=== PATIENT | male | born 1965 | race African-American/Black ===

== ENCOUNTER 2016-12-25 08:43 | Inpatient (IN) | payer OTHER ==
[2016-12-25 10:59] VITALS: BMI 24.9
--- NOTE | 2016-12-25 11:45 | HP ---
CIWA Score - CIWA Score Nausea/Vomitin Muscle Tremors: 4-Moderate,w/Arms Extend Anxiety: 2 Agitation: 3 Paroxysmal Sweats: 1-Minimal Palms Moist Orientation: 0-Oriented Tacttile Disturbances: 0-None Auditory Disturbances: 0-None Visual Disturbances: 0-None Headache: 0-None Present CIWA-Ar Total Score: 13 Admission ROS BHS - HPI Chief Complaint: Withdrawal sx. Allergies/Adverse Reactions: Allergies Allergy/AdvReac Type Severity Reaction Status Date / Time Penicillins Allergy Difficulty Verified 12/25/16 11:00 Breathing History of Present Illness: 51 y/o man with a long hx. of alcoholism is admitted for detox.Pt. has been in previous detox denies significant sobriety. Exam Limitations: No Limitations - Ebola screening Have you traveled outside of the country in the last 21 days: No Have you had contact with anyone from an Ebola affected area: No Have you been sick,other than usual withdrawal symptoms: No - Review of Systems Constitutional: No Symptoms Reported EENT: reports: No Symptoms Reported Respiratory: reports: No Symptoms reported Cardiac: reports: No Symptoms Reported GI: reports: Nausea, Abdominal cramping : reports: No Symptoms Reported Musculoskeletal: reports: No Symptoms Reported Integumentary: reports: No Symptoms Reported Neuro: reports: Tremors Endocrine: reports: No Symptoms Reported Hematology: reports: No Symptoms Reported Psychiatric: reports: No Sypmtoms Reported Other Systems: Reviewed and Negative Patient History - Patient Medical History Hx Anemia: No Hx Asthma: No Hx Chronic Obstructive Pulmonary Disease (COPD): No Hx Cancer: No Hx Cardiac Disorders: No Hx Congestive Heart Failure: No Hx Hypertension: No Hx Hypercholesterolemia: No Hx Pacemaker: No HX Cerebrovascular Accident: No Hx Seizures: No Hx Dementia: No Hx Diabetes: No Hx Gastrointestinal Disorders: No Hx Liver Disease: No Hx Genitourinary Disorders: No Hx Sexually Transmitted Disorders: No Hx Renal Disease (ESRD): No Hx Thyroid Disease: No Hx Human Immunodeficiency Virus (HIV): No Hx Hepatitis C: No Hx Depression: No Hx Suicide Attempt: No Hx Bipolar Disorder: No Hx Schizophrenia: No - Patient Surgical History Past Surgical History: No Hx Neurologic Surgery: No Hx Cataract Extraction: No Hx Cardiac Surgery: No Hx Lung Surgery: No Hx Breast Surgery: No Hx Breast Biopsy: No Hx Abdominal Surgery: No Hx Appendectomy: No Hx Cholecystectomy: No Hx Genitourinary Surgery: No Hx Section: No Hx Orthopedic Surgery: No Anesthesia Reaction: No - PPD History Previous Implant?: Yes Documented Results: Negative w/o proof Implanted On Prior [facility] Admission?: No PPD to be Administered?: Yes - Smoking Cessation Smoking history: Never smoked Have you smoked in the past 12 months: No Hx Chewing Tobacco Use: No Initiated information on smoking cessation: No - Substance & Tx. History Hx Alcohol Use: Yes Hx Substance Use: Yes Substance Use Type: Alcohol, Marijuana Hx Substance Use Treatment: Yes (Detox) - Substances Abused Alcohol-vodka/beer Route: Oral Frequency: Daily Amount used: 3 pts./1-6 pk. Age of first use: 14 Date of Last Use: 12/25/16 Marijuana Route: Smoking Frequency: 3-6 times per week Amount used: $5 Age of first use: 14 Date of Last Use: 12/24/16 Family Disease History - Family Disease History Family Disease History: Diabetes: Sister (Alcohol), CA: Mother, Other: Sister Admission Physical Exam [facility] - Vital Signs Vital Signs: Vital Signs - 24 hr 12/25/16 10:47 Temperature 97.4 F L Pulse Rate 81 Respiratory 18 Rate Blood Pressure 140/99 - Physical General Appearance: Yes: Alcohol on Breath, Tremorous, Irritable, Sweating, Anxious HEENTM: Yes: Within Normal Limits Respiratory: Yes: Chest Non-Tender, Lungs Clear, Normal Breath Sounds Neck: Yes: Supple Breast: Yes: Breast Exam Deferred Cardiology: Yes: Regular Rhythm, Regular Rate Abdominal: Yes: Normal Bowel Sounds, Non Tender, Soft Genitourinary: Yes: Within Normal Limits Back: Yes: Within Normal Limits Musculoskeletal: Yes: Within Normal Limits Extremities: Yes: Tremors Neurological: Yes: Fully Oriented, Alert Integumentary: Yes: Within Normal Limits Lymphatic: Yes: Within Normal Limits - Diagnostic (1) Alcohol dependence with uncomplicated withdrawal Current Visit: Yes Status: Acute (2) Cannabis dependence Current Visit: Yes Status: Acute Cleared for Admission [facility] - Detox or Rehab [facility] Level of Care: Medically Managed Detox Regimen/Protocol: Librium [facility] Breath Alcohol Content Breath Alcohol Content: 0.045 Urine Drug Screen - Results Drug Screen Negative: No Urine Drug Screen Results: TCA-Tricyclic Antidepress
[2016-12-25] MEDS ORDERED: MAGNESIUM HYDROX 2400MG/30ML ORAL SUSPENSION 30 ML CUP PO PRN (11:50)
[2016-12-25] MEDS ORDERED: LOPERAMIDE HCL 2 MG CAPSULE PO PRN (11:50)
[2016-12-25] MEDS ORDERED: P-EPHED 60MG/TRIPROLIDI 2.5MG TABLET PO PRN (11:50)
[2016-12-25] MEDS ORDERED: hydrOXYzine PAMOATE 50 MG CAPSULE (FP) PO PRN (11:50)
[2016-12-25] MEDS ORDERED: chlordiazePOXIDE HCL 25 MG CAPSULE PO PRN (11:50)
[2016-12-25] MEDS ORDERED: ACETAMINOPHEN 325 MG TABLET (FP) PO PRN (11:50)
[2016-12-25] MEDS ORDERED: IBUPROFEN 400 MG TABLET (FP) PO PRN (11:50)
[2016-12-25] MEDS ORDERED: MENTHOL/PHENOL 1 EACH UD MM PRN (11:50)
[2016-12-25] MEDS ORDERED: guaiFENesin/D-METHORPHAN HB 10 ML UNIT-DOSE CUPS PO PRN (11:50)
[2016-12-25] MEDS ORDERED: MAG HYDROX/AL HYDROX/SIMETH 30 ML UNIT-DOSE CUP PO PRN (11:50)
[2016-12-25] MEDS ORDERED: MAGNESIUM CITRATE 300 ML BOTTLE PO PRN (11:50)
[2016-12-25] MEDS ORDERED: chlordiazePOXIDE HCL 25 MG CAPSULE PO ONE (12:22)
[2016-12-25] MEDS: chlordiazePOXIDE HCL 25 MG CAPSULE PO SCH ×2 (17:40→22:39)
[2016-12-25 22:34] LABS: URINE APPEARANCE CLEAR; URINE BILIRUBIN NEGATIVE (NEGATIVE); URINE BLOOD NEGATIVE (NEGATIVE); URINE COLOR LTYELLOW; URINE GLUCOSE (UA) NEGATIVE (NEGATIVE); URINE KETONE NEGATIVE (NEGATIVE); URINE LEUK ESTERASE NEGATIVE (NEGATIVE); URINE NITRITE NEGATIVE (NEGATIVE); URINE PROTEIN NEGATIVE (NEGATIVE); URINE UROBILINOGEN NEGATIVE E.U./dl (0.2-1.0)
[2016-12-25] MEDS: diphenhydrAMINE HCL 50 MG CAPSULE PO PRN (22:39)
[2016-12-25] MEDS: THIAMINE HCL 100 MG TABLET (FP) PO SCH (22:39)
[2016-12-26] MEDS: chlordiazePOXIDE HCL 25 MG CAPSULE PO SCH ×4 (05:23→22:39)
--- NOTE | 2016-12-26 10:11 | EKG ---
Test Reason : Blood Pressure : / mmHG Vent. Rate : 076 BPM Atrial Rate : 076 BPM P-R Int : 152 ms QRS Dur : 074 ms QT Int : 402 ms P-R-T Axes : 046 059 038 degrees QTc Int : 452 ms NORMAL SINUS RHYTHM NO PREVIOUS ECGS AVAILABLE Confirmed by JIMBO LUGO MD ([id number]) on 12/26/2016 10:11:13 AM Referred By: Confirmed By:JMIBO LUGO MD
[2016-12-26 10:18] LABS: MCH 32.8 pg (25.7-33.7); MCHC 33.2 g/dl (32.0-35.9); MEAN CELL VOLUME 98.9 fl (80-96); MEAN PLT VOLUME 8.8 fl (7.5-11.1); PLATELET COUNT 236 K/MM3 (134-434); RDW 14.9 % (11.9-15.9); WHITE BLOOD COUNT 5.4 K/mm3 (4.0-10.0)
[2016-12-26] MEDS: PRENATAL VITAMINS W/ FOLIC ACID TABLET (FP) PO SCH (10:47)
[2016-12-26 11:27] LABS: ALBUMIN 4.1 g/dl (3.4-5.0); ALK PHOS 46 U/L (45-117); ANION GAP 9 (8-16); BILIRUBIN,TOTAL 0.5 mg/dL (0.2-1.0); CALCIUM 8.9 mg/dL (8.5-10.1); CO2 27 mmol/L (21-32); COCKROFT - GAULT 115.78; CREATININE 0.8 mg/dL (0.7-1.3); GLUCOSE,RANDOM 124 mg/dL (74-106); SGOT/AST 30 U/L (15-37); SGPT/ALT 35 U/L (12-78)
--- NOTE | 2016-12-26 12:35 | PN ---
S CIWA - CIWA Score Nausea/Vomitin Muscle Tremors: 3 Anxiety: 2 Agitation: 2 Paroxysmal Sweats: 2 Orientation: 0-Oriented Tacttile Disturbances: 1-Very Mild Itch/Numbness Auditory Disturbances: 0-None Visual Disturbances: 0-None Headache: 2-Mild CIWA-Ar Total Score: 14 S Progress Note (SOAP) Subjective: shakes, interrupted sleep, restlessness Objective: 12/26/16 12:34 Vital Signs - 8 hr 12/26/16 12/26/16 06:41 09:38 Temperature 97.1 F L 96.7 F L Pulse Rate 79 105 H Respiratory 18 18 Rate Blood Pressure 145/95 140/100 Laboratory Last Values WBC 5.4 K/mm3 (4.0-10.0) 12/26/16 06:16 RBC 3.89 M/mm3 (4.00-5.60) L 12/26/16 06:16 Hgb 12.7 GM/dL (11.7-16.9) 12/26/16 06:16 Hct 38.5 % (35.4-49) 12/26/16 06:16 MCV 98.9 fl (80-96) H 12/26/16 06:16 MCHC 33.2 g/dl (32.0-35.9) 12/26/16 06:16 RDW 14.9 % (11.9-15.9) 12/26/16 06:16 Plt Count 236 K/MM3 (134-434) 12/26/16 06:16 MPV 8.8 fl (7.5-11.1) 12/26/16 06:16 Sodium 141 mmol/L (136-145) 12/26/16 06:16 Potassium 4.3 mmol/L (3.5-5.1) 12/26/16 06:16 Chloride 105 mmol/L (98-107) 12/26/16 06:16 Carbon Dioxide 27 mmol/L (21-32) 12/26/16 06:16 Anion Gap 9 (8-16) 12/26/16 06:16 BUN 14 mg/dL (7-18) 12/26/16 06:16 Creatinine 0.8 mg/dL (0.7-1.3) 12/26/16 06:16 Creat Clearance w eGFR > 60 (>60) 12/26/16 06:16 Random Glucose 124 mg/dL (74-106) H 12/26/16 06:16 Calcium 8.9 mg/dL (8.5-10.1) 12/26/16 06:16 Total Bilirubin 0.5 mg/dL (0.2-1.0) 12/26/16 06:16 AST 30 U/L (15-37) 12/26/16 06:16 ALT 35 U/L (12-78) 12/26/16 06:16 Alkaline Phosphatase 46 U/L (45-117) 12/26/16 06:16 Total Protein 8.0 g/dl (6.4-8.2) 12/26/16 06:16 Albumin 4.1 g/dl (3.4-5.0) 12/26/16 06:16 Urine Color Ltyellow 12/25/16 13:00 Urine Appearance Clear 12/25/16 13:00 Urine pH 5.0 (5.0-8.0) 12/25/16 13:00 Ur Specific [place] 1.024 (1.001-1.035) 12/25/16 13:00 Urine Protein Negative (NEGATIVE) 12/25/16 13:00 Urine Glucose (UA) Negative (NEGATIVE) 12/25/16 13:00 Urine Ketones Negative (NEGATIVE) 12/25/16 13:00 Urine Blood Negative (NEGATIVE) 12/25/16 13:00 Urine Nitrite Negative (NEGATIVE) 12/25/16 13:00 Urine Bilirubin Negative (NEGATIVE) 12/25/16 13:00 Urine Urobilinogen Negative E.U./dl (0.2-1.0) 12/25/16 13:00 Ur Leukocyte Esterase Negative (NEGATIVE) 12/25/16 13:00 labs noted Assessment: 12/26/16 12:35 withdrawal sx Plan: continue detox
[2016-12-26] MEDS: THIAMINE HCL 100 MG TABLET (FP) PO SCH (22:39)
[2016-12-26] MEDS: diphenhydrAMINE HCL 50 MG CAPSULE PO PRN (22:39)
[2016-12-27] MEDS: chlordiazePOXIDE HCL 25 MG CAPSULE PO SCH ×2 (05:38→10:31)
[2016-12-27] MEDS: PRENATAL VITAMINS W/ FOLIC ACID TABLET (FP) PO SCH (10:31)
[2016-12-27 11:02] LABS: URINE APPEARANCE CLEAR; URINE BILIRUBIN NEGATIVE (NEGATIVE); URINE BLOOD NEGATIVE (NEGATIVE); URINE COLOR STRAW; URINE GLUCOSE (UA) NEGATIVE (NEGATIVE); URINE KETONE NEGATIVE (NEGATIVE); URINE LEUK ESTERASE NEGATIVE (NEGATIVE); URINE NITRITE NEGATIVE (NEGATIVE); URINE PROTEIN NEGATIVE (NEGATIVE); URINE UROBILINOGEN NEGATIVE E.U./dl (0.2-1.0)
--- NOTE | 2016-12-27 14:19 | PN ---
S CIWA - CIWA Score Nausea/Vomitin Muscle Tremors: 4-Moderate,w/Arms Extend Anxiety: 4-Mod. Anxious/Guarded Agitation: 4-Moderately Restless Paroxysmal Sweats: No Perspiration Orientation: 0-Oriented Tacttile Disturbances: 1-Very Mild Itch/Numbness Auditory Disturbances: 0-None Visual Disturbances: 0-None Headache: 2-Mild CIWA-Ar Total Score: 18 BHS Progress Note (SOAP) Subjective: Sweating, anxious, interrupted sleep, tremor Objective: 12/27/16 14:18 Last Vital Signs Temp Pulse Resp BP Pulse Ox 96.5 F L 98 H 20 123/80 12/27/16 13:12 12/27/16 13:12 12/27/16 13:12 12/27/16 13:12 Laboratory Tests 12/25/16 12/26/16 12/26/16 13:00 06:16 06:16 WBC 5.4 RBC 3.89 L Hgb 12.7 Hct 38.5 MCV 98.9 H MCHC 33.2 RDW 14.9 Plt Count 236 MPV 8.8 Sodium 141 Potassium 4.3 Chloride 105 Carbon Dioxide 27 Anion Gap 9 BUN 14 Creatinine 0.8 Creat Clearance w eGFR > 60 Random Glucose 124 H Calcium 8.9 Total Bilirubin 0.5 AST 30 ALT 35 Alkaline Phosphatase 46 Total Protein 8.0 Albumin 4.1 Urine Color Ltyellow Urine Appearance Clear Urine pH 5.0 Ur Specific [place] 1.024 Urine Protein Negative Urine Glucose (UA) Negative Urine Ketones Negative Urine Blood Negative Urine Nitrite Negative Urine Bilirubin Negative Urine Urobilinogen Negative Ur Leukocyte Esterase Negative RPR Titer 12/26/16 12/27/16 06:16 08:55 WBC RBC Hgb Hct MCV MCHC RDW Plt Count MPV Sodium Potassium Chloride Carbon Dioxide Anion Gap BUN Creatinine Creat Clearance w eGFR Random Glucose Calcium Total Bilirubin AST ALT Alkaline Phosphatase Total Protein Albumin Urine Color Straw Urine Appearance Clear Urine pH 6.0 Ur Specific [place] 1.003 Urine Protein Negative Urine Glucose (UA) Negative Urine Ketones Negative Urine Blood Negative Urine Nitrite Negative Urine Bilirubin Negative Urine Urobilinogen Negative Ur Leukocyte Esterase Negative RPR Titer Nonreactive Labs noted Assessment: 12/27/16 14:19 Withdrawal symptoms Plan: Continue detox
[2016-12-27] MEDS: chlordiazePOXIDE 5 MG CAPSULE PO SCH ×2 (18:18→23:10)
[2016-12-27] MEDS: THIAMINE HCL 100 MG TABLET (FP) PO SCH (23:10)
[2016-12-28] MEDS: chlordiazePOXIDE 5 MG CAPSULE PO SCH ×2 (05:10→10:44)
[2016-12-28] MEDS: PRENATAL VITAMINS W/ FOLIC ACID TABLET (FP) PO SCH (10:44)
--- NOTE | 2016-12-28 16:03 | PN ---
BHS Progress Note (SOAP) Subjective: Sweating,interrupted sleep,restless Objective: 12/28/16 16:02 Vital Signs - 8 hr 12/28/16 12/28/16 09:31 14:11 Temperature 97.2 F L 96.4 F L Pulse Rate 87 93 H Respiratory 18 20 Rate Blood Pressure 131/98 120/87 Laboratory Tests 12/25/16 12/26/16 12/26/16 13:00 06:16 06:16 WBC 5.4 RBC 3.89 L Hgb 12.7 Hct 38.5 MCV 98.9 H MCHC 33.2 RDW 14.9 Plt Count 236 MPV 8.8 Sodium 141 Potassium 4.3 Chloride 105 Carbon Dioxide 27 Anion Gap 9 BUN 14 Creatinine 0.8 Creat Clearance w eGFR > 60 Random Glucose 124 H Calcium 8.9 Total Bilirubin 0.5 AST 30 ALT 35 Alkaline Phosphatase 46 Total Protein 8.0 Albumin 4.1 Urine Color Ltyellow Urine Appearance Clear Urine pH 5.0 Ur Specific [place] 1.024 Urine Protein Negative Urine Glucose (UA) Negative Urine Ketones Negative Urine Blood Negative Urine Nitrite Negative Urine Bilirubin Negative Urine Urobilinogen Negative Ur Leukocyte Esterase Negative RPR Titer 12/26/16 12/27/16 06:16 08:55 WBC RBC Hgb Hct MCV MCHC RDW Plt Count MPV Sodium Potassium Chloride Carbon Dioxide Anion Gap BUN Creatinine Creat Clearance w eGFR Random Glucose Calcium Total Bilirubin AST ALT Alkaline Phosphatase Total Protein Albumin Urine Color Straw Urine Appearance Clear Urine pH 6.0 Ur Specific [place] 1.003 Urine Protein Negative Urine Glucose (UA) Negative Urine Ketones Negative Urine Blood Negative Urine Nitrite Negative Urine Bilirubin Negative Urine Urobilinogen Negative Ur Leukocyte Esterase Negative RPR Titer Nonreactive labs noted Assessment: 12/28/16 16:02 Withdrawal sx. Plan: Continue detox
[2016-12-28] MEDS: chlordiazePOXIDE HCL 10 MG CAPSULE PO SCH ×2 (17:29→22:26)
[2016-12-28] MEDS: THIAMINE HCL 100 MG TABLET (FP) PO SCH (22:26)
[2016-12-29] MEDS: diphenhydrAMINE HCL 50 MG CAPSULE PO PRN (01:22)
[2016-12-29] MEDS: chlordiazePOXIDE HCL 10 MG CAPSULE PO SCH (05:59)
[2016-12-29 06:26] VITALS: BP 119/85; PULSE 86; TEMP 95.4
--- NOTE | 2016-12-29 10:18 | DS ---
[facility] Detox Discharge Summary Admission Date: 12/25/16 Discharge Date: 12/29/16 - History Present History: Alcohol Dependence, Cannabis Dependence Pertinent Past History: Shoulder separation - Physical Exam Results Vital Signs: Vital Signs Temperature 95.4 F L 12/29/16 06:26 Pulse Rate 86 12/29/16 06:26 Respiratory Rate 18 12/29/16 06:26 Blood Pressure 119/85 12/29/16 06:26 O2 Sat by Pulse Oximetry (%) Pertinent Admission Physical Exam Findings: Withdrawal sx. Laboratory Tests 12/25/16 12/26/16 12/26/16 13:00 06:16 06:16 WBC 5.4 RBC 3.89 L Hgb 12.7 Hct 38.5 MCV 98.9 H MCHC 33.2 RDW 14.9 Plt Count 236 MPV 8.8 Sodium 141 Potassium 4.3 Chloride 105 Carbon Dioxide 27 Anion Gap 9 BUN 14 Creatinine 0.8 Creat Clearance w eGFR > 60 Random Glucose 124 H Calcium 8.9 Total Bilirubin 0.5 AST 30 ALT 35 Alkaline Phosphatase 46 Total Protein 8.0 Albumin 4.1 Urine Color Ltyellow Urine Appearance Clear Urine pH 5.0 Ur Specific [place] 1.024 Urine Protein Negative Urine Glucose (UA) Negative Urine Ketones Negative Urine Blood Negative Urine Nitrite Negative Urine Bilirubin Negative Urine Urobilinogen Negative Ur Leukocyte Esterase Negative RPR Titer 12/26/16 12/27/16 06:16 08:55 WBC RBC Hgb Hct MCV MCHC RDW Plt Count MPV Sodium Potassium Chloride Carbon Dioxide Anion Gap BUN Creatinine Creat Clearance w eGFR Random Glucose Calcium Total Bilirubin AST ALT Alkaline Phosphatase Total Protein Albumin Urine Color Straw Urine Appearance Clear Urine pH 6.0 Ur Specific [place] 1.003 Urine Protein Negative Urine Glucose (UA) Negative Urine Ketones Negative Urine Blood Negative Urine Nitrite Negative Urine Bilirubin Negative Urine Urobilinogen Negative Ur Leukocyte Esterase Negative RPR Titer Nonreactive labs noted - Treatment Hospital Course: Detox Protocol Followed, Detoxed Safely, Responded well, Discharged Condition Good, Rehab Referral Accepted Patient has Accepted a Rehab Referral to: IOP - Medication Discharge Medications: Ambulatory Orders NK [No Known Home Medication] 12/25/16 - Diagnosis (1) Alcohol dependence with uncomplicated withdrawal Status: Acute (2) Cannabis dependence Status: Acute - AMA Did Patient Leave Against Medical Advice: No
== END 2016-12-29 09:00 | disposition home or self-care (01) | DRG 775 ==
LOC: YASAS 08:43 → Y3N 12:05
PROVIDERS: ADMIT Internal Medicine; ATTEND Internal Medicine
PROC: HZ2ZZZZ Detoxification Services for Substance Abuse Treatment (ICD-10-PCS; principal; 2016-12-29)
DX: F10.230 Alcohol dependence with withdrawal, uncomplicated (principal); F12.20 Cannabis dependence, uncomplicated
CPT/HCPCS: 36415; 80053; 81003; 85027; 86593; 93005; 93010

== ENCOUNTER 2018-12-05 12:40 | Inpatient (IN) | payer OTHER ==
--- NOTE | 2018-12-05 14:50 | HP ---
CIWA Score Nausea/Vomitin Muscle Tremors: 2 Anxiety: 2 Agitation: 2 Paroxysmal Sweats: 1-Minimal Palms Moist Orientation: 0-Oriented Tacttile Disturbances: 1-Very Mild Itch/Numbness Auditory Disturbances: 1-Very Mild Visual Disturbances: 0-None Headache: 2-Mild CIWA-Ar Total Score: 13 - Admission Criteria [facility] Guidelines: Admission for Medically Managed Detox: Requires at least one of the followin. CIWA greater than 12 2. Seizures within the past 24 hours 3. Delirium tremens within the past 24 hours 4. Hallucinations within the past 24 hours 5. Acute intervention needed for co occurring medical disorder 6. Acute intervention needed for co occurring psychiatric disorder 7. Severe withdrawal that cannot be handled at a lower level of care (continued vomiting, continued diarrhea, abnormal vital signs) requiring intravenous medication and/or fluids 8. Admission ROS BHS - HPI Chief Complaint: i need help to stop drinking alcohol and marijuana Allergies/Adverse Reactions: Allergies Allergy/AdvReac Type Severity Reaction Status Date / Time Penicillins Allergy Difficulty Verified 12/05/18 14:39 Breathing History of Present Illness: this 53 years old male with alcohol and marijuana dependence seeking detox, withdrawal symptom,last detox C 12/25/16 to 12/29/16 last rehab 2018 syncope alcohol related multiple admissions in detox but keep relapsing nicotine dependence 1 to 2 cigarette/day,do not want nicotine replacement no significant period of sobriety Exam Limitations: No Limitations - Ebola screening Have you traveled outside of the country in the last 21 days: No Have you had contact with anyone from an Ebola affected area: No - Review of Systems Constitutional: Loss of Appetite, Malaise, Night Sweats, Changes in sleep, Weakness, Unintentional Wgt. Loss EENT: reports: No Symptoms Reported, Nose Congestion Respiratory: reports: No Symptoms reported Cardiac: reports: No Symptoms Reported GI: reports: Diarrhea, Nausea, Abdominal cramping : reports: No Symptoms Reported Musculoskeletal: reports: Back Pain, Muscle Pain Integumentary: reports: Dryness Neuro: reports: Headache, Tremors Endocrine: reports: No Symptoms Reported Hematology: reports: No Symptoms Reported Psychiatric: reports: No Sypmtoms Reported, Judgement Intact, Mood/Affect Appropiate, Orientated x3 Other Systems: Reviewed and Negative Patient History - Patient Medical History Hx Anemia: No Hx Asthma: No Hx Chronic Obstructive Pulmonary Disease (COPD): No Hx Cancer: No Hx Cardiac Disorders: No Hx Congestive Heart Failure: No Hx Hypertension: No Hx Hypercholesterolemia: No Hx Pacemaker: No HX Cerebrovascular Accident: No Hx Seizures: No Hx Dementia: No Hx Diabetes: No Hx Gastrointestinal Disorders: No Hx Liver Disease: No Hx Genitourinary Disorders: No Hx Sexually Transmitted Disorders: No Hx Renal Disease (ESRD): No Hx Thyroid Disease: No Hx Human Immunodeficiency Virus (HIV): No (last 09/24 negative) Hx Hepatitis C: No Hx Depression: No Hx Suicide Attempt: No Hx Bipolar Disorder: No Hx Schizophrenia: No Other Medical History: no suiciidal,no homicidal - Patient Surgical History Past Surgical History: No Hx Neurologic Surgery: No Hx Cataract Extraction: No Hx Cardiac Surgery: No Hx Lung Surgery: No Hx Breast Surgery: No Hx Breast Biopsy: No Hx Abdominal Surgery: No Hx Appendectomy: No Hx Cholecystectomy: No Hx Genitourinary Surgery: No Hx Section: No Hx Orthopedic Surgery: No Anesthesia Reaction: No - PPD History Previous Implant?: Yes Documented Results: Negative w/o proof Implanted On Prior [facility] Admission?: Yes Date: 12/27/16 Results: 1 mm PPD to be Administered?: Yes - Smoking Cessation Smoking history: Never smoked Have you smoked in the past 12 months: No Aproximately how many cigarettes per day: 1 Hx Chewing Tobacco Use: No Initiated information on smoking cessation: Yes 'Breaking Loose' booklet given: 12/05/18 - Substance & Tx. History Hx Alcohol Use: Yes Hx Substance Use: Yes Substance Use Type: Alcohol Hx Substance Use Treatment: Yes ([facility] 12/25/16 to 12/29/16) - Substances abused Alcohol Substance route: Oral Frequency: Daily Amount used: 1 quart of vodka Age of first use: 14 Date of last use: 12/04/18 Marijuana/Hashish Substance route: Smoking Frequency: 1-2 times per week Amount used: 10$ Age of first use: 14 Date of last use: 12/03/18 Family Disease History - Family Disease History Family Disease History: Diabetes: Sister (Alcohol), CA: Mother (), Other : Father (,cva), Sister Admission Physical Exam BHS - Physical General Appearance: Yes: Moderate Distress, Tremorous, Irritable, Sweating, Anxious HEENTM: Yes: Normocephalic, [place], Pharynx Normal Respiratory: Yes: Within Normal Limits, Lungs Clear, Normal Breath Sounds Neck: Yes: Within Normal Limits, Supple, Trachea in good position Breast: Yes: Within Normal Limits Cardiology: Yes: Within Normal Limits, Regular Rhythm, Regular Rate, S1, S2 Abdominal: Yes: Within Normal Limits, Normal Bowel Sounds, Soft Genitourinary: Yes: Within Normal Limits Back: Yes: Muscle Spasm Musculoskeletal: Yes: Back pain, Muscle Pain Extremities: Yes: Within Normal Limits, Normal Range of Motion, Tremors Neurological: Yes: exhibition organiser II-XII NML intact, Fully Oriented, Alert, Motor Strength 5/5 Integumentary: Yes: Dry, Other (hyperpigmenatation of right hand ,r/o tinea) - Diagnostic (1) Alcohol dependence with uncomplicated withdrawal Current Visit: No Status: Acute (2) Cannabis dependence Current Visit: No Status: Acute (3) Tinea Current Visit: Yes Status: Acute (4) Syncope Current Visit: Yes Status: Acute (5) Lactose intolerance Current Visit: Yes Status: Acute Cleared for Admission [facility] - Detox or Rehab [facility] Level of Care: Medically Managed Detox Regimen/Protocol: Librium Inpatient Rehab Admission - Rehab Decision to Admit Inpatient rehab admission?: No
[2018-12-05] MEDS ORDERED: hydrOXYzine PAMOATE 25 MG CAPSULE (FP) PO PRN (15:25)
[2018-12-05] MEDS ORDERED: MENTHOL/PHENOL 1 EACH UD MM PRN (15:25)
[2018-12-05] MEDS ORDERED: ACETAMINOPHEN 325 MG TABLET (FP) PO PRN ×2 (15:25)
[2018-12-05] MEDS ORDERED: MAG HYDROX/AL HYDROX/SIMETH 30 ML UNIT-DOSE CUP PO PRN (15:25)
[2018-12-05] MEDS ORDERED: MAGNESIUM HYDROX 2400MG/30ML ORAL SUSPENSION 30 ML CUP PO PRN (15:25)
[2018-12-05] MEDS ORDERED: IBUPROFEN 400 MG TABLET (FP) PO PRN (15:25)
[2018-12-05] MEDS ORDERED: MAGNESIUM CITRATE 300 ML BOTTLE PO PRN (15:25)
[2018-12-05] MEDS ORDERED: METHOCARBAMOL 500 MG TABLET PO PRN (15:25)
[2018-12-05] MEDS ORDERED: chlordiazePOXIDE HCL 25 MG CAPSULE PO PRN (15:25)
[2018-12-05] MEDS ORDERED: BISMUTH SUBSALICYLATE 524 MG/30 ML UD PO PRN (15:25)
[2018-12-05] MEDS: chlordiazePOXIDE HCL 25 MG CAPSULE PO SCH ×2 (17:48→22:42)
[2018-12-05] MEDS: FLUOCINONIDE 0.05% CREAM (15 GM TUBE) TP SCH ×2 (17:48→22:43)
[2018-12-05] MEDS: THIAMINE HCL 100 MG TABLET (FP) PO SCH (22:43)
[2018-12-06] MEDS: FLUOCINONIDE 0.05% CREAM (15 GM TUBE) TP SCH ×3 (05:43→22:37)
[2018-12-06] MEDS: chlordiazePOXIDE HCL 25 MG CAPSULE PO SCH ×4 (05:43→22:37)
[2018-12-06 10:00] LABS: HEMATOCRIT 41.1 % (35.4-49); HEMOGLOBIN 13.8 GM/dL (11.7-16.9); MCH 34.3 pg (25.7-33.7); MCHC 33.6 g/dl (32.0-35.9); MEAN CELL VOLUME 102.1 fl (80-96); MEAN PLT VOLUME 9.1 fl (7.5-11.1); PLATELET COUNT 193 K/MM3 (134-434); RBC 4.03 M/mm3 (4.00-5.60); RDW 12.9 % (11.9-15.9); WHITE BLOOD COUNT 5.9 K/mm3 (4.0-10.0)
[2018-12-06 10:28] LABS: ALBUMIN 3.4 g/dl (3.4-5.0); ALK PHOS 52 U/L (45-117); ANION GAP 7 MMOL/L (8-16); BILIRUBIN,TOTAL 0.9 mg/dL (0.2-1); BLOOD UREA NITROGEN 11 mg/dL (7-18); CALCIUM 9.1 mg/dL (8.5-10.1); CHLORIDE 100 mmol/L (98-107); CO2 30 mmol/L (21-32); CREATININE 0.9 mg/dL (0.55-1.3); GLUCOSE,RANDOM 101 mg/dL (74-106); POTASSIUM 3.9 mmol/L (3.5-5.1); SGOT/AST 99 U/L (15-37); SGPT/ALT 52 U/L (13-61); SODIUM 137 mmol/L (136-145); TOT PROT 7.5 g/dl (6.4-8.2)
[2018-12-06] MEDS: PRENATAL VITAMINS W/ FOLIC ACID TABLET (FP) PO SCH (10:38)
[2018-12-06] MEDS: MELATONIN 5 MG TABLETS PO PRN (22:37)
[2018-12-06] MEDS: THIAMINE HCL 100 MG TABLET (FP) PO SCH (22:37)
[2018-12-07] MEDS: chlordiazePOXIDE HCL 25 MG CAPSULE PO SCH ×2 (06:05→10:53)
[2018-12-07] MEDS: FLUOCINONIDE 0.05% CREAM (15 GM TUBE) TP SCH ×3 (06:06→22:07)
[2018-12-07] MEDS: PRENATAL VITAMINS W/ FOLIC ACID TABLET (FP) PO SCH (10:53)
--- NOTE | 2018-12-07 11:30 | PN ---
S CIWA - CIWA Score Nausea/Vomitin-Mild Nausea/No Vomiting Muscle Tremors: 1-None Visible, but [place] Anxiety: 0-No Anxiety, at Ease Agitation: 0-Normal Activity Paroxysmal Sweats: No Perspiration Orientation: 0-Oriented Tacttile Disturbances: 0-None Auditory Disturbances: 0-None Visual Disturbances: 0-None Headache: 1-Very Mild CIWA-Ar Total Score: 3 BHS Progress Note (SOAP) Subjective: pt states he is "OK" today, has no complaints. O: Vital Signs - 24 hr 12/06/18 12/06/18 12/06/18 14:03 16:52 21:14 Temperature 97.7 F 98.8 F 98.2 F Pulse Rate 115 H 122 H 115 H Respiratory 18 18 18 Rate Blood Pressure 135/93 101/58 L 139/110 H 12/06/18 12/07/18 12/07/18 21:58 00:30 08:01 Temperature 98.2 F 97.9 F Pulse Rate 97 H 87 Respiratory 18 18 18 Rate Blood Pressure 127/84 105/73 12/07/18 09:10 Temperature 98.1 F Pulse Rate 91 H Respiratory 16 Rate Blood Pressure 132/84 mildly increased [place]-91 Laboratory Tests 12/06/18 12/06/18 12/06/18 07:00 07:00 07:00 WBC 5.9 RBC 4.03 Hgb 13.8 Hct 41.1 MCV 102.1 H MCH 34.3 H MCHC 33.6 RDW 12.9 D Plt Count 193 MPV 9.1 Sodium 137 Potassium 3.9 Chloride 100 Carbon Dioxide 30 Anion Gap 7 L BUN 11 Creatinine 0.9 Creat Clearance w eGFR 87.61 Random Glucose 101 Calcium 9.1 Total Bilirubin 0.9 AST 99 H ALT 52 Alkaline Phosphatase 52 Total Protein 7.5 Albumin 3.4 RPR Titer Nonreactive increased MCV, increased AST: likely due to alcohol use a/p: continue alcohol detox protocol
[2018-12-07] MEDS ORDERED: chlordiazePOXIDE HCL 10 MG CAPSULE PO PRN (17:00)
[2018-12-07] MEDS: chlordiazePOXIDE HCL 10 MG CAPSULE PO SCH ×2 (17:49→22:07)
[2018-12-07] MEDS: MELATONIN 5 MG TABLETS PO PRN (22:06)
[2018-12-07] MEDS: THIAMINE HCL 100 MG TABLET (FP) PO SCH (22:07)
[2018-12-08] MEDS: chlordiazePOXIDE HCL 10 MG CAPSULE PO SCH ×3 (06:48→18:51)
[2018-12-08] MEDS: FLUOCINONIDE 0.05% CREAM (15 GM TUBE) TP SCH ×3 (06:48→22:01)
--- NOTE | 2018-12-08 09:57 | PN ---
BHS CIWA - CIWA Score Nausea/Vomitin Muscle Tremors: 2 Anxiety: 2 Agitation: 2 Paroxysmal Sweats: 1-Minimal Palms Moist Orientation: 0-Oriented Tacttile Disturbances: 1-Very Mild Itch/Numbness Auditory Disturbances: 1-Very Mild Visual Disturbances: 0-None Headache: 2-Mild CIWA-Ar Total Score: 13 BHS Progress Note (SOAP) Subjective: alert,irritable,anxious,interrupted sleep,tremor Objective: 12/08/18 09:55 t98.2.p93,r18,bp 112/72 Assessment: 12/08/18 09:56 withdrawal symptom 12/08/18 09:56labs pending l Plan: continue detox
--- NOTE | 2018-12-08 09:59 | PN ---
S Progress Note (SOAP) Subjective: alert,irritable,anxious,interrupted sleep Objective: 12/08/18 09:58 Vital Signs Temperature 98.1 F 12/08/18 07:32 Pulse Rate 84 12/08/18 07:32 Respiratory Rate 18 12/08/18 07:32 Blood Pressure 118/77 12/08/18 07:32 O2 Sat by Pulse Oximetry (%) 12/08/18 09:58 Laboratory Last Values WBC 5.9 K/mm3 (4.0-10.0) 12/06/18 07:00 RBC 4.03 M/mm3 (4.00-5.60) 12/06/18 07:00 Hgb 13.8 GM/dL (11.7-16.9) 12/06/18 07:00 Hct 41.1 % (35.4-49) 12/06/18 07:00 MCV 102.1 fl (80-96) H 12/06/18 07:00 MCH 34.3 pg (25.7-33.7) H 12/06/18 07:00 MCHC 33.6 g/dl (32.0-35.9) 12/06/18 07:00 RDW 12.9 % (11.9-15.9) D 12/06/18 07:00 Plt Count 193 K/MM3 (134-434) 12/06/18 07:00 MPV 9.1 fl (7.5-11.1) 12/06/18 07:00 Sodium 137 mmol/L (136-145) 12/06/18 07:00 Potassium 3.9 mmol/L (3.5-5.1) 12/06/18 07:00 Chloride 100 mmol/L (98-107) 12/06/18 07:00 Carbon Dioxide 30 mmol/L (21-32) 12/06/18 07:00 Anion Gap 7 MMOL/L (8-16) L 12/06/18 07:00 BUN 11 mg/dL (7-18) 12/06/18 07:00 Creatinine 0.9 mg/dL (0.55-1.3) 12/06/18 07:00 Creat Clearance w eGFR 87.61 (>60) 12/06/18 07:00 Random Glucose 101 mg/dL (74-106) 12/06/18 07:00 Calcium 9.1 mg/dL (8.5-10.1) 12/06/18 07:00 Total Bilirubin 0.9 mg/dL (0.2-1) 12/06/18 07:00 AST 99 U/L (15-37) H 12/06/18 07:00 ALT 52 U/L (13-61) 12/06/18 07:00 Alkaline Phosphatase 52 U/L (45-117) 12/06/18 07:00 Total Protein 7.5 g/dl (6.4-8.2) 12/06/18 07:00 Albumin 3.4 g/dl (3.4-5.0) 12/06/18 07:00 RPR Titer Nonreactive (NONREACTIVE) 12/06/18 07:00 Assessment: 12/08/18 09:59 withdrawal symptom Plan: withdrawal symptom,discharge in am
[2018-12-08] MEDS: PRENATAL VITAMINS W/ FOLIC ACID TABLET (FP) PO SCH (10:37)
[2018-12-08] MEDS: MELATONIN 5 MG TABLETS PO PRN (21:59)
[2018-12-08] MEDS: THIAMINE HCL 100 MG TABLET (FP) PO SCH (21:59)
[2018-12-09] MEDS: chlordiazePOXIDE HCL 10 MG CAPSULE PO SCH (05:58)
[2018-12-09] MEDS: FLUOCINONIDE 0.05% CREAM (15 GM TUBE) TP SCH (05:59)
[2018-12-09 06:36] VITALS: BP 134/76; PULSE 96; TEMP 97.6
--- NOTE | 2018-12-09 09:11 | DS ---
[facility] Detox Discharge Summary Admission Date: 12/05/18 Discharge Date: 12/09/18 - History Present History: Alcohol Dependence, Cannabis Dependence - Physical Exam Results Vital Signs: Vital Signs Temperature 97.6 F 12/09/18 06:35 Pulse Rate 96 H 12/09/18 06:35 Respiratory Rate 18 12/09/18 06:35 Blood Pressure 134/76 12/09/18 06:35 O2 Sat by Pulse Oximetry (%) - Treatment Hospital Course: Detox Protocol Followed, Detoxed Safely, Responded well, Discharged Condition Good, Rehab Referral Accepted - Medication Discharge Medications: Ambulatory Orders NK [No Known Home Medication] 12/25/16 - Diagnosis (1) Lactose intolerance Current Visit: Yes Status: Chronic (2) Syncope Current Visit: Yes Status: Acute (3) Tinea Current Visit: Yes Status: Chronic (4) Alcohol dependence with uncomplicated withdrawal Current Visit: No Status: Acute (5) Cannabis dependence Current Visit: Yes Status: Chronic (6) Shoulder separation Current Visit: No Status: Acute Qualifiers: Encounter type: initial encounter - AMA Did Patient Leave Against Medical Advice: No ([facility])
== END 2018-12-09 09:29 | disposition home or self-care (01) | DRG 775 ==
LOC: YASAS 12:40 → Y6N 15:51
PROVIDERS: ADMIT Surgery; ATTEND Surgery
PROC: HZ2ZZZZ Detoxification Services for Substance Abuse Treatment (ICD-10-PCS; principal; 2018-12-05)
DX: F10.230 Alcohol dependence with withdrawal, uncomplicated (principal); F12.20 Cannabis dependence, uncomplicated; F17.210 Nicotine dependence, cigarettes, uncomplicated; R55 Syncope and collapse; B35.8 Other dermatophytoses; E73.9 Lactose intolerance, unspecified; Z88.0 Allergy status to penicillin
CPT/HCPCS: 36415; 80053; 85027; 86593

== ENCOUNTER 2019-08-07 13:07 | Inpatient (IN) | payer OTHER ==
[2019-08-07 13:31] VITALS: BMI 22.7
--- NOTE | 2019-08-07 14:49 | HP ---
CIWA Score Nausea/Vomitin Muscle Tremors: 4-Moderate,w/Arms Extend Anxiety: 3 Agitation: 2 Paroxysmal Sweats: 3 Orientation: 0-Oriented Tacttile Disturbances: 0-None Auditory Disturbances: 0-None Visual Disturbances: 0-None Headache: 1-Very Mild CIWA-Ar Total Score: 15 - Admission Criteria OASAS Guidelines: Admission for Medically Managed Detox: Requires at least one of the followin. CIWA greater than 12 2. Seizures within the past 24 hours 3. Delirium tremens within the past 24 hours 4. Hallucinations within the past 24 hours 5. Acute intervention needed for co occurring medical disorder 6. Acute intervention needed for co occurring psychiatric disorder 7. Severe withdrawal that cannot be handled at a lower level of care (continued vomiting, continued diarrhea, abnormal vital signs) requiring intravenous medication and/or fluids 8. Patient presents the following: CIWA greater than 12 Admission Criteria Met: Admission criteria met Admitting History and Physical - Smoking History Smoking history: Never smoked Have you smoked in the past 12 months: No Aproximately how many cigarettes per day: 1 - Alcohol/Substance Use Hx Alcohol Use: Yes Admission ROS [facility] Chief Complaint: alcohol detox Allergies/Adverse Reactions: Allergies Allergy/AdvReac Type Severity Reaction Status Date / Time Penicillins Allergy Difficulty Verified 08/07/19 13:19 Breathing History of Present Illness: 54 yo with no medical problems, on no meds. pt states he is homeless and stays in [facility]. Was seen by [facility] outreach program who referred pt to here. Pt states he is homeless, occ goes to his cousin's house for a shower. Eats when he has money from [employer]. Alcohol- quart of vodka and 6 pack of beer, no h/o seizures or DT's THC- occasional DUR- no meds KEILY- 0.017, THC on Utox - Ebola screening Have you traveled outside of the country in the last 21 days: No Have you had contact with anyone from an Ebola affected area: No Do you have a fever: No - Review of Systems Constitutional: Loss of Appetite EENT: reports: No Symptoms Reported Respiratory: reports: No Symptoms reported Cardiac: reports: No Symptoms Reported GI: reports: No Symptoms Reported : reports: No Symptoms Reported Musculoskeletal: reports: No Symptoms Reported Integumentary: reports: No Symptoms Reported Neuro: reports: No Symptoms reported Endocrine: reports: No Symptoms Reported Hematology: reports: No Symptoms Reported Psychiatric: reports: No Sypmtoms Reported Other Systems: Reviewed and Negative Patient History - Patient Medical History Hx Anemia: No Hx Asthma: No Hx Chronic Obstructive Pulmonary Disease (COPD): No Hx Cancer: No Hx Cardiac Disorders: No Hx Congestive Heart Failure: No Hx Hypertension: No Hx Hypercholesterolemia: No Hx Pacemaker: No HX Cerebrovascular Accident: No Hx Seizures: No Hx Dementia: No Hx Diabetes: No Hx Gastrointestinal Disorders: No Hx Liver Disease: No Hx Genitourinary Disorders: No Hx Sexually Transmitted Disorders: No Hx Renal Disease (ESRD): No Hx Thyroid Disease: No Hx Human Immunodeficiency Virus (HIV): No (last 09/24 negative) Hx Hepatitis C: No Hx Depression: No Hx Suicide Attempt: No Hx Bipolar Disorder: No Hx Schizophrenia: No - Patient Surgical History Past Surgical History: No Hx Neurologic Surgery: No Hx Cataract Extraction: No Hx Cardiac Surgery: No Hx Lung Surgery: No Hx Breast Surgery: No Hx Breast Biopsy: No Hx Abdominal Surgery: No Hx Appendectomy: No Hx Cholecystectomy: No Hx Genitourinary Surgery: No Hx Section: No Hx Orthopedic Surgery: No Anesthesia Reaction: No - PPD History Date: 12/07/18 Results: 1 mm - Smoking Cessation Smoking history: Never smoked Have you smoked in the past 12 months: No Aproximately how many cigarettes per day: 1 Hx Chewing Tobacco Use: No Initiated information on smoking cessation: No 'Breaking Loose' booklet given: 08/07/19 - Substances abused Alcohol Substance route: Oral Frequency: Daily Amount used: 1 quart of vodka & 6 beers Age of first use: 14 Date of last use: 08/06/19 Marijuana/Hashish Substance route: Smoking Frequency: 1-2 times per week Amount used: 10$ Age of first use: 14 Date of last use: 07/31/19 Admission Physical Exam BHS - Vital Signs Vital Signs: Vital Signs - 24 hr 08/07/19 13:19 Temperature 99.1 F Pulse Rate 91 H Respiratory 18 Rate Blood Pressure 166/102 H - Physical General Appearance: Yes: Disheveled, Tremorous HEENTM: Yes: Hearing grossly Normal Respiratory: Yes: Within Normal Limits, Lungs Clear Neck: Yes: Within Normal Limits Cardiology: Yes: Within Normal Limits, Regular Rhythm Abdominal: Yes: Within Normal Limits, Protuberent Back: Yes: Within Normal Limits Musculoskeletal: Yes: Within Normal Limits Extremities: Yes: Within Normal Limits Neurological: Yes: Within Normal Limits, Fully Oriented, Alert Integumentary: Yes: Within Normal Limits Lymphatic: Yes: Within Normal Limits - Diagnostic (1) Alcohol dependence with uncomplicated withdrawal Current Visit: No Status: Acute (2) Cannabis dependence Current Visit: No Status: Chronic Breathalyzer - Breathalyzer Breathalyzer: 0.017 Urine Drug Screen - Test Device Lot number: [id number] Expiration date: 04/05/21 - Control Is test valid?: Yes - Results Drug screen NEGATIVE: No Urine drug screen results: THC-Marijuana Inpatient Rehab Admission - Rehab Decision to Admit Inpatient rehab admission?: No
[2019-08-07] MEDS ORDERED: METHOCARBAMOL 500 MG TABLET PO PRN (14:50)
[2019-08-07] MEDS ORDERED: hydrOXYzine PAMOATE 25 MG CAPSULE (FP) PO PRN (14:50)
[2019-08-07] MEDS ORDERED: MAGNESIUM CITRATE 300 ML BOTTLE PO PRN (14:50)
[2019-08-07] MEDS ORDERED: MAG HYDROX/AL HYDROX/SIMETH 30 ML UNIT-DOSE CUP PO PRN (14:50)
[2019-08-07] MEDS ORDERED: IBUPROFEN 400 MG TABLET (FP) PO PRN (14:50)
[2019-08-07] MEDS ORDERED: ACETAMINOPHEN 325 MG TABLET (FP) PO PRN ×2 (14:50)
[2019-08-07] MEDS ORDERED: diazePAM 5 MG TABLET PO PRN (14:50)
[2019-08-07] MEDS ORDERED: BISMUTH SUBSALICYLATE 262 MG/15 ML BTL PO PRN (14:50)
[2019-08-07] MEDS ORDERED: MAGNESIUM HYDROX 2400MG/30ML ORAL SUSPENSION 30 ML CUP PO PRN (14:50)
[2019-08-07] MEDS ORDERED: MENTHOL/PHENOL 1 EACH UD MM PRN (14:50)
[2019-08-07] MEDS ORDERED: diazePAM 5 MG TABLET PO ONE (15:30)
[2019-08-07] MEDS: diazePAM 5 MG TABLET PO SCH (22:10)
[2019-08-07] MEDS: THIAMINE HCL 100 MG TABLET (FP) PO SCH (22:10)
[2019-08-07] MEDS: MELATONIN 5 MG TABLETS PO PRN (22:10)
[2019-08-08] MEDS: diazePAM 5 MG TABLET PO SCH (05:20)
[2019-08-08] MEDS: PRENATAL VITAMINS W/ FOLIC ACID TABLET (FP) PO SCH (10:10)
[2019-08-08 10:21] LABS: ALBUMIN 3.5 g/dl (3.4-5.0); BILIRUBIN,TOTAL 0.9 mg/dL (0.2-1); BLOOD UREA NITROGEN 11.6 mg/dL (7-18); CALCIUM 9.3 mg/dL (8.5-10.1); CREATININE 0.8 mg/dL (0.55-1.3); POTASSIUM 4.1 mmol/L (3.5-5.1); TOT PROT 7.7 g/dl (6.4-8.2)
[2019-08-08 10:23] LABS: HEMATOCRIT 40.1 % (35.4-49); HEMOGLOBIN 13.5 GM/dL (11.7-16.9); MCH 34.6 pg (25.7-33.7); MCHC 33.7 g/dl (32.0-35.9); MEAN CELL VOLUME 102.7 fl (80-96); MEAN PLT VOLUME 9.2 fl (7.5-11.1); PLATELET COUNT 257 K/MM3 (134-434); RDW 12.7 % (11.9-15.9); WHITE BLOOD COUNT 6.2 K/mm3 (4.0-10.0)
[2019-08-08] MEDS ORDERED: LORazepam 0.5 MG TABLET PO PRN (13:47)
--- NOTE | 2019-08-08 13:48 | PN ---
[facility] CIWA - CIWA Score Nausea/Vomitin-Mild Nausea/No Vomiting Muscle Tremors: 2 Anxiety: 4-Mod. Anxious/Guarded Agitation: 3 Paroxysmal Sweats: 1-Minimal Palms Moist Orientation: 0-Oriented Tacttile Disturbances: 1-Very Mild Itch/Numbness Auditory Disturbances: 0-None Visual Disturbances: 0-None Headache: 0-None Present CIWA-Ar Total Score: 12 BHS Progress Note (SOAP) Subjective: 54 years old male admitted on 08/07/19 for alcohol withdrawal sx management treated with valium detox regimen patient prefers to have ativan detox regimen that valium "makes me sleeping all the time" modified to ativan detox regimen as per patient preference Objective: 08/08/19 13:50 Vital Signs Temperature 97.8 F 08/08/19 13:21 Pulse Rate 108 H 08/08/19 13:21 Respiratory Rate 18 08/08/19 13:21 Blood Pressure 129/74 08/08/19 13:21 O2 Sat by Pulse Oximetry (%) Laboratory Last Values WBC 6.2 K/mm3 (4.0-10.0) 08/08/19 08:00 RBC 3.90 M/mm3 (4.00-5.60) L 08/08/19 08:00 Hgb 13.5 GM/dL (11.7-16.9) 08/08/19 08:00 Hct 40.1 % (35.4-49) 08/08/19 08:00 MCV 102.7 fl (80-96) H 08/08/19 08:00 MCH 34.6 pg (25.7-33.7) H 08/08/19 08:00 MCHC 33.7 g/dl (32.0-35.9) 08/08/19 08:00 RDW 12.7 % (11.9-15.9) 08/08/19 08:00 Plt Count 257 K/MM3 (134-434) D 08/08/19 08:00 MPV 9.2 fl (7.5-11.1) 08/08/19 08:00 Sodium 139 mmol/L (136-145) 08/08/19 08:00 Potassium 4.1 mmol/L (3.5-5.1) 08/08/19 08:00 Chloride 99 mmol/L (98-107) 08/08/19 08:00 Carbon Dioxide 32 mmol/L (21-32) 08/08/19 08:00 Anion Gap 8 MMOL/L (8-16) 08/08/19 08:00 BUN 11.6 mg/dL (7-18) 08/08/19 08:00 Creatinine 0.8 mg/dL (0.55-1.3) 08/08/19 08:00 Est GFR (CKD-EPI)AfAm 115.74 08/08/19 08:00 Est GFR (CKD-EPI)NonAf 99.86 08/08/19 08:00 Random Glucose 94 mg/dL (74-106) 08/08/19 08:00 Calcium 9.3 mg/dL (8.5-10.1) 08/08/19 08:00 Total Bilirubin 0.9 mg/dL (0.2-1) 08/08/19 08:00 AST 46 U/L (15-37) H 08/08/19 08:00 ALT 33 U/L (13-61) 08/08/19 08:00 Alkaline Phosphatase 49 U/L (45-117) 08/08/19 08:00 Total Protein 7.7 g/dl (6.4-8.2) 08/08/19 08:00 Albumin 3.5 g/dl (3.4-5.0) 08/08/19 08:00 lab noted Assessment: 08/08/19 13:50 alcohol withdrawal sx Plan: continue modified ativan detox regimen
[2019-08-08] MEDS: LORazepam 0.5 MG TABLET PO SCH ×2 (14:14→22:28)
[2019-08-08] MEDS: MELATONIN 5 MG TABLETS PO PRN (22:28)
[2019-08-08] MEDS: THIAMINE HCL 100 MG TABLET (FP) PO SCH (22:28)
[2019-08-09] MEDS: LORazepam 0.5 MG TABLET PO SCH ×2 (05:36→17:48)
[2019-08-09] MEDS ORDERED: diazePAM 5 MG TABLET PO SCH (06:00)
--- NOTE | 2019-08-09 09:35 | PN ---
[facility] CIWA - CIWA Score Nausea/Vomitin-No Nausea/No Vomiting Muscle Tremors: 2 Anxiety: 2 Agitation: 2 Paroxysmal Sweats: 1-Minimal Palms Moist Orientation: 0-Oriented Tacttile Disturbances: 0-None Auditory Disturbances: 0-None Visual Disturbances: 0-None Headache: 0-None Present CIWA-Ar Total Score: 7 BHS Progress Note (SOAP) Subjective: 54 years old male admitted on 08/07/19 for alcohol withdrawal sx management treated with valium detox regimen patient tolerated well feeling better today less tremor ate breakfast mild anxiety slept through the night Objective: 08/09/19 09:34 Vital Signs Temperature 96.1 F L 08/09/19 09:15 Pulse Rate 91 H 08/09/19 09:15 Respiratory Rate 16 08/09/19 09:15 Blood Pressure 124/84 08/09/19 09:15 O2 Sat by Pulse Oximetry (%) Laboratory Last Values WBC 6.2 K/mm3 (4.0-10.0) 08/08/19 08:00 RBC 3.90 M/mm3 (4.00-5.60) L 08/08/19 08:00 Hgb 13.5 GM/dL (11.7-16.9) 08/08/19 08:00 Hct 40.1 % (35.4-49) 08/08/19 08:00 MCV 102.7 fl (80-96) H 08/08/19 08:00 MCH 34.6 pg (25.7-33.7) H 08/08/19 08:00 MCHC 33.7 g/dl (32.0-35.9) 08/08/19 08:00 RDW 12.7 % (11.9-15.9) 08/08/19 08:00 Plt Count 257 K/MM3 (134-434) D 08/08/19 08:00 MPV 9.2 fl (7.5-11.1) 08/08/19 08:00 Sodium 139 mmol/L (136-145) 08/08/19 08:00 Potassium 4.1 mmol/L (3.5-5.1) 08/08/19 08:00 Chloride 99 mmol/L (98-107) 08/08/19 08:00 Carbon Dioxide 32 mmol/L (21-32) 08/08/19 08:00 Anion Gap 8 MMOL/L (8-16) 08/08/19 08:00 BUN 11.6 mg/dL (7-18) 08/08/19 08:00 Creatinine 0.8 mg/dL (0.55-1.3) 08/08/19 08:00 Est GFR (CKD-EPI)AfAm 115.74 08/08/19 08:00 Est GFR (CKD-EPI)NonAf 99.86 08/08/19 08:00 Random Glucose 94 mg/dL (74-106) 08/08/19 08:00 Calcium 9.3 mg/dL (8.5-10.1) 08/08/19 08:00 Total Bilirubin 0.9 mg/dL (0.2-1) 08/08/19 08:00 AST 46 U/L (15-37) H 08/08/19 08:00 ALT 33 U/L (13-61) 08/08/19 08:00 Alkaline Phosphatase 49 U/L (45-117) 08/08/19 08:00 Total Protein 7.7 g/dl (6.4-8.2) 08/08/19 08:00 Albumin 3.5 g/dl (3.4-5.0) 08/08/19 08:00 RPR Titer Nonreactive (NONREACTIVE) 08/08/19 08:00 lab noted Assessment: 08/09/19 09:34 alcohol withdrawal sx Plan: continue valium detox regimen
[2019-08-09] MEDS: PRENATAL VITAMINS W/ FOLIC ACID TABLET (FP) PO SCH (09:56)
[2019-08-09] MEDS: THIAMINE HCL 100 MG TABLET (FP) PO SCH (21:49)
[2019-08-09] MEDS: MELATONIN 5 MG TABLETS PO PRN (21:51)
[2019-08-10] MEDS ORDERED: LORazepam 0.5 MG TABLET PO ONE (05:00)
[2019-08-10] MEDS ORDERED: diazePAM 5 MG TABLET PO ONE (06:00)
[2019-08-10 09:15] VITALS: BP 131/96; PULSE 93; TEMP 98
--- NOTE | 2019-08-10 12:03 | DS ---
[facility] Detox Discharge Summary Admission Date: 08/07/19 Discharge Date: 08/10/19 - History Present History: Alcohol Dependence Additional Comments: 54 years old male admitted on 08/07/19 for alcohol withdrawal sx management treated with valium detox regimen patient tolerated well alert oriented x 3 respiratory clear lung bilaterally on auscultation extremities full range of motion skin warm and dry - Physical Exam Results Vital Signs: Vital Signs Temperature 98.0 F 08/10/19 09:00 Pulse Rate 93 H 08/10/19 09:00 Respiratory Rate 18 08/10/19 09:00 Blood Pressure 131/96 08/10/19 09:00 O2 Sat by Pulse Oximetry (%) Pertinent Admission Physical Exam Findings: alcohol withdrawal sx Laboratory Last Values WBC 6.2 K/mm3 (4.0-10.0) 08/08/19 08:00 RBC 3.90 M/mm3 (4.00-5.60) L 08/08/19 08:00 Hgb 13.5 GM/dL (11.7-16.9) 08/08/19 08:00 Hct 40.1 % (35.4-49) 08/08/19 08:00 MCV 102.7 fl (80-96) H 08/08/19 08:00 MCH 34.6 pg (25.7-33.7) H 08/08/19 08:00 MCHC 33.7 g/dl (32.0-35.9) 08/08/19 08:00 RDW 12.7 % (11.9-15.9) 08/08/19 08:00 Plt Count 257 K/MM3 (134-434) D 08/08/19 08:00 MPV 9.2 fl (7.5-11.1) 08/08/19 08:00 Sodium 139 mmol/L (136-145) 08/08/19 08:00 Potassium 4.1 mmol/L (3.5-5.1) 08/08/19 08:00 Chloride 99 mmol/L (98-107) 08/08/19 08:00 Carbon Dioxide 32 mmol/L (21-32) 08/08/19 08:00 Anion Gap 8 MMOL/L (8-16) 08/08/19 08:00 BUN 11.6 mg/dL (7-18) 08/08/19 08:00 Creatinine 0.8 mg/dL (0.55-1.3) 08/08/19 08:00 Est GFR (CKD-EPI)AfAm 115.74 08/08/19 08:00 Est GFR (CKD-EPI)NonAf 99.86 08/08/19 08:00 Random Glucose 94 mg/dL (74-106) 08/08/19 08:00 Calcium 9.3 mg/dL (8.5-10.1) 08/08/19 08:00 Total Bilirubin 0.9 mg/dL (0.2-1) 08/08/19 08:00 AST 46 U/L (15-37) H 08/08/19 08:00 ALT 33 U/L (13-61) 08/08/19 08:00 Alkaline Phosphatase 49 U/L (45-117) 08/08/19 08:00 Total Protein 7.7 g/dl (6.4-8.2) 08/08/19 08:00 Albumin 3.5 g/dl (3.4-5.0) 08/08/19 08:00 RPR Titer Nonreactive (NONREACTIVE) 08/08/19 08:00 lab noted - Treatment Hospital Course: Detox Protocol Followed, Detoxed Safely, Responded well, Discharged Condition Good, Rehab Referral Accepted Patient has Accepted a Rehab Referral to: [facility] - Medication Discharge Medications: Ambulatory Orders NK [No Known Home Medication] 12/25/16 - Diagnosis (1) Alcohol dependence with uncomplicated withdrawal Status: Acute - AMA Did Patient Leave Against Medical Advice: No CIWA Score - CIWA Score Nausea/Vomitin-No Nausea/No Vomiting Muscle Tremors: 1-None Visible, but Roland Anxiety: 1-Mildly Anxious Agitation: 1-Slight > Activity Paroxysmal Sweats: No Perspiration Orientation: 0-Oriented Tacttile Disturbances: 0-None Auditory Disturbances: 0-None Visual Disturbances: 0-None Headache: 0-None Present CIWA-Ar Total Score: 3
== END 2019-08-10 09:02 | disposition home or self-care (01) | DRG 775 ==
LOC: YASAS 13:07 → Y3N 15:11
PROVIDERS: ADMIT Allergy & Immunology; ATTEND Allergy & Immunology
PROC: HZ2ZZZZ Detoxification Services for Substance Abuse Treatment (ICD-10-PCS; principal; 2019-08-07)
DX: F10.230 Alcohol dependence with withdrawal, uncomplicated (principal); F12.20 Cannabis dependence, uncomplicated; Z88.0 Allergy status to penicillin
CPT/HCPCS: 36415; 80053; 85027; 86593